=== PATIENT | male | born 1990 | race Caucasian/White ===

== ENCOUNTER 2025-01-17 20:01 | Emergency (ER) | payer OTHER, SELFPAY ==
[2025-01-17 20:08] VITALS: BP 130/82
--- NOTE | 2025-01-18 00:33 | ED.SKININJ ---
HPI-Injury
General
Chief Complaint: Bite
Source: patient
Exam Limitations: none
Time Seen by Provider: 01/18/25 00:27
Nursing documentation reviewed up to this point in time: agreed with
History of Present Illness-Injury
Is this injury a work related problem?: No
Is pt an associate of [facility]?: No
Initial Injury comments:
Note:
CHIEF COMPLAINT(S)
Dog bite on right hand.
HISTORY OF PRESENT ILLNESS
The patient is a 34-year-old male with no known pre-existing conditions, presenting to the emergency department with a dog bite wound on the right arm sustained earlier today. Reports that the dog is owned by him and is larger. The patient reports
that the incident occurred while wearing a hoodie, while he was playing with his dog. He was not pierced but patient noticed a lot of pain at the time, and he removed his hoodie and noticed that there was a puncture wound but the bite penetrated
through to the skin. The patient noted discomfort in performing activities such as opening and shutting the hand, possibly due to swelling. He denies any other injuries. The dog is rabies. He has not tetanus status. He does not have any
allergies to any antibiotics
PAST MEDICAL AND SURGICAL HISTORY
No significant past medical or surgical history reported.
PHYSICAL EXAM
General: Patient is well appearing and in no acute distress; non-toxic
Skin: Puncture wound noted to right anterior forearm. No surrounding erythema. No purulent drainage.
Head: Normocephalic, atraumatic
Eyes: Sclera non-icteric. EOMs intact.
Cardiac: Regular rate
Peripheral Vascular: No lower extremity swelling or edema. Mild swelling of the right forearm. No overlying ecchymosis. 2+ radial and ulnar pulses.
Pulm: Normal respiratory effort
Musculoskeletal: No tenderness to palpation noted over the bones of the right wrist. Full range of motion of the right upper extremity�right elbow, wrist, phalanges. 5 out of 5 strength.
Neuro: CN II-XII intact, no focal neurologic deficits.
Psychiatric: Appropriate mood and affect.
PLAN
1. Clean and dress the wound thoroughly.
2. Prescribe antibiotics to cover potential infection from bacteria in the dogs mouth.
3. Update the patient�s tetanus immunization as a precaution due to the open wound.
4. Recommend an X-ray to rule out any bone chips or embedded teeth fragments, considering the reported limited range of motion.
X-ray negative for foreign body, negative for acute fracture or dislocation
DIFFERENTIAL DIAGNOSIS
The Differential Diagnosis includes, in no particular order and is not limited to:
- Contusion
- Hematoma
- Infection secondary to dog bite
- Soft tissue injury
- Tendon injury
- Fracture
- Foreign body (tooth fragment)
- Sprain
- Strain
- Nerve injury
SUMMARY OF ENCOUNTER
The patient presented with a dog bite to the right hand, exhibiting pain and decreased range of motion. Management involved wound cleaning and dressing, antibiotic coverage for potential infections typical of canine oral marianne, and ensuring tetanus
prophylaxis. Given the limited motion and bruising, an X-ray was advised to evaluate for deeper injuries such as fractures or foreign bodies.
DISPOSITION
Pending further evaluation possibly requiring X-rays. Initial wound care and prescriptions provided.
ASSESSMENT
Dog bite to the right hand with suspected hematoma, bruising, and limited range of motion impacting function. Risk of infection considered high.
MEDICATION RECONCILIATION
Antibiotics were prescribed to cover oral bacteria from the dog bite. Tetanus booster to be provided.
MEDICAL DECISION MAKING
- Number and Complexity of Problems Addressed: Dog bite, potential secondary infection, and limited hand function.
- Data:
- Category 1:
- X-ray of the hand considered necessary due to limited motion and bruising.
- Category 2:
- Proposed cleaning regimen and antibiotic coverage aligned with infection prevention standards.
- Risk:
Prescription medication prescribed for infection risk post-dog bite incident, with hand function concerns prompting further evaluation through imaging.
Past History
Past History
ED Past Medical History: None
ED Past Surgical History: Orthopedic
Social History
Tobacco: Non-smoker
Alcohol: Occasional
Drug: None
Personal:
Living: with family
Phy Exam
Physical Exam
Physical Exam:
see hpi
Course
Orders/Labs/Results
Orders:
Orders
01/18/25 00:46
Amoxicillin 875 mg/Clav 125 mg [Augmentin 875 mg/125 mg] 1 tablet PO NOW STA
Tetanus/Diphth/Acelpertussis [Adacel] 0.5 ml IM .ONCE ONE
CR Forearm - Right 2 View Urgent
Comment:
Reason For Exam: dog bite
CR Wrist - Right Min 2 Views Urgent
Comment:
Reason For Exam: right wrist pain
Vital Signs
Initial and Last Documented VS:
Initial Vital Signs
Temp Pulse Resp BP Pulse Ox
98.6 F 86 16 130/82 98
01/17/25 20:08 01/17/25 20:08 01/17/25 20:08 01/17/25 20:08 01/17/25 20:08
Last Documented Vital Signs
Temp Pulse Resp BP Pulse Ox
98.6 F 66 18 115/75 98
01/17/25 20:08 01/18/25 01:06 01/18/25 01:06 01/18/25 01:06 01/18/25 01:06
*Pulse Oximetry
SaO2: 98
Oxygen Mode of Delivery: Room air
Patient hypoxic: no
*Critical Care Note
Total Time (30-74mins, 75-104mins- exclusive of procedures): Not Applicable
ED Attending Note
-
Portions of this chart may have been created with voice recognition software.� Occasional wrong word or��sound alike� substitutions may have occurred due to the inherent limitations of voice recognition software.
Discharge Plan
Departure
Patient Disposition: Home (Routine Discharge)
Date of Disposition: 01/18/25
Time of Disposition: 01:22
Patient with high blood pressure during this ER visit?: Yes
Condition: Good
Discharge Problem:
Dog bite
Instructions: Animal Bites (DC), BLOOD PRESSURE
Prescriptions:
New
amoxicillin-pot clavulanate 875-125 mg tablet
1 tab PO BID 5 Days Qty: 10 0RF
No Action
amoxicillin-pot clavulanate 875-125 mg tablet
1 tab PO BID Qty: 19 0RF
ondansetron 4 mg tablet,disintegrating
4 mg PO TIDPRN PRN (Reason: nausea/vomiting) Qty: 20 0RF
Referrals:
NONE,* [Family Provider, Internal Medicine]
Activity Restrictions/Additional Instructions:
Please keep dressing in place for 24 hours. After 24 hours, you can change dressing once daily. Please keep the wound dry. You can apply bacitracin ointment a few times a day for the next few days. Please start taking Augmentin. Take 1 tablet
twice daily for 5 days. Please look out for signs of infection return to ER such as purulent drainage from the wound, surrounding redness, increasing pain or swelling, fevers or chills. Please follow-up with primary care provider for reassessment
in 1 week.
Interventions
Interventions:
*Risk Screen - Suicide Last Done: 01/17/25 20:08
*General Assessment Last Done: 01/17/25 20:08
[facility] Fall Risk Assessment Tool Last Done: 01/17/25 23:04
*Nursing Disposition Last Done: 01/18/25 01:37
ED-Skin Assessment Last Done: 01/17/25 23:03
Discharge Date and Time
Discharge Date/Time: 01/18/25 01:37
Print Language: CENTRAL AFRICAN
[2025-01-18] MEDS: AUGMENTIN 875 MG/125 MG 1 TABLET PO (00:51)
[2025-01-18] MEDS: ADACEL 0.5 ML IM (00:51)
[2025-01-18 01:06] VITALS: BP 115/75
== END 2025-01-18 01:37 | disposition home or self-care (01) ==
LOC: EMR 20:01
PROVIDERS: EMERGENCY PHYSICIAN Emergency Medicine
DX: S61.451A Open bite of right hand, initial encounter (principal); W54.0XXA Bitten by dog, initial encounter; R03.0 Elevated blood-pressure reading, without diagnosis of hypertension; Z23 Encounter for immunization
CPT/HCPCS: 99283; 90471; 73090; 73100; 90715